=== PATIENT | male | born 1945 | race Caucasian/White ===

== ENCOUNTER 2018-10-27 08:09 | Day surgery (SDC) | payer MEDICARE, BC ==
[~2018-10-27] VITALS: Ht 172.7 cm; Wt 85.5 kg
[~2018-10-27 08:09] MED LIST: ASPI81EC PO; CLON.1 PO; DESL5 PO; Fish Oil 10001000 MG PO; Hydrochlorothia25 MG PO; LO-DOSE ASPIRIN81 MG PO; LOSARTAN PO; LOSARTAN-HCTZ1 EAC1 PO; METO50ER PO; METOPROLOL PO; NITR.4SL SL; Norco 5-325 Ta1 EACH PO; PANT40 PO; PRAVASTATIN SOD10 MG PO; VERA120ERB PO; Verapamil HCl360 MG PO
== END 2018-10-27 10:29 | disposition home or self-care (01) ==
LOC: ORSCSDS 08:09
PROVIDERS: Surgery
PROC: 0DJD8ZZ Inspection of Lower Intestinal Tract, Via Natural or Artificial Opening Endoscopic (ICD-10-PCS; principal; 2018-10-27 09:45)
DX: Z12.11 Encounter for screening for malignant neoplasm of colon (principal); Z80.0 Family history of malignant neoplasm of digestive organs; I10 Essential (primary) hypertension; K21.9 Gastro-esophageal reflux disease without esophagitis; Z87.891 Personal history of nicotine dependence; Z79.82 Long term (current) use of aspirin; Z79.899 Other long term (current) drug therapy
CPT/HCPCS: J2704; J7120

== ENCOUNTER 2024-08-14 09:15 | Day surgery (SDC) | payer MEDICARE, BC ==
[~2024-08-14] VITALS: Ht 172.7 cm; Wt 82.6 kg
[2024-08-14] VITALS (14 sets, daily range): BP systolic 110–169; BP diastolic 79–94
[~2024-08-14 09:15] MED LIST changes: +Lactated Ringer's 1,000 ML IV SCH
[2024-08-14] MEDS ORDERED: propofoL 20 ML IV ONE (10:15)
--- NOTE | 2024-08-14 10:18 | NUR ---
08/14/24 1018 Domitila French CONFIRMED AND REVIEWED H&P, MEDCICATIONS, ALLERGIES, MEDICAL HISTORY, RESPIRATORY HISTORY, VITAL SIGNS, 3-LEAD EKG, CONSENTS, AND PHYSICIAN ORDERS. PATIENT CONFIRMS NPO STATUS AND AGREES WITH SCHEDULED PROCEDURE. MONITOR INTACT WITH CONTINUOUS PULSE OXIMETRY, CAPNOGRAPHY, 3-LEAD EKG, INTERMITTENT BP. SUPPLEMENTAL O2 TO BE TITRATED THROUGHOUT PROCEDURE TO MAINTAIN O2 SATURATION ABOVE 90%. PATIENT DETERMINED TO BE ASA APPROPRIATE FOR PROPOFOL SEDATION PRIOR TO START OF PROCEDURE BY DR. RIVERA.
== END 2024-08-14 11:00 | disposition home or self-care (01) ==
LOC: ORSCMMR 09:15 → ORD 10:00 → ORSCMMR 11:00
PROVIDERS: Internal Medicine Gastroenterology
PROC: 0DBK8ZX Excision of Ascending Colon, Via Natural or Artificial Opening Endoscopic, Diagnostic (ICD-10-PCS; principal; 2024-08-14 10:00)
DX: K62.5 Hemorrhage of anus and rectum (principal); Z80.0 Family history of malignant neoplasm of digestive organs; K63.5 Polyp of colon; F32.A Depression, unspecified; I10 Essential (primary) hypertension; K21.9 Gastro-esophageal reflux disease without esophagitis; E78.00 Pure hypercholesterolemia, unspecified; Z85.46 Personal history of malignant neoplasm of prostate; Z79.899 Other long term (current) drug therapy
CPT/HCPCS: 88305; J2704; J7120